=== PATIENT | male | born 1965 | race Caucasian/White ===

== ENCOUNTER 2024-06-22 13:31 | Emergency (ER) | payer MEDICAID ==
[~2024-06-22] VITALS: Ht 165.1 cm; Wt 68.0 kg
[2024-06-22 13:58] VITALS: BP_SYST 136; PULSE 104; RESP 18; TEMP 98.5; O2SAT 96
[2024-06-22] MEDS: ACETAMINOPHEN 325 MG TABLET PO ONE (16:51)
[2024-06-22] MEDS: AZITHROMYCIN 250 MG TABLET PO ONE (16:52)
[2024-06-22] MEDS ORDERED: ZIT250 PO (17:03)
[2024-06-22] MEDS ORDERED: BENZ100C92 PO (17:03)
[2024-06-22] MEDS ORDERED: ACET325T PO (17:03)
[2024-06-22 17:27] VITALS: BP_SYST 127; PULSE 81; RESP 16; TEMP 98.5; O2SAT 98
== END 2024-06-22 17:27 | disposition home or self-care (01) ==
LOC: SED 13:31
DX: J40 Bronchitis, not specified as acute or chronic (principal); J06.9 Acute upper respiratory infection, unspecified; I10 Essential (primary) hypertension; E78.00 Pure hypercholesterolemia, unspecified; F17.200 Nicotine dependence, unspecified, uncomplicated; Z88.6 Allergy status to analgesic agent
CPT/HCPCS: 99283; 93005; Q0144